=== PATIENT | female | born 1935 | race Caucasian/White ===

== ENCOUNTER 2016-12-18 19:27 | Inpatient (IN) | payer OTHER ==
[~2016-12-18] VITALS: Ht 157.5 cm; Wt 59.9 kg
[~2016-12-18 19:27] MED LIST: AMLODIPINE BESYL5 MG PO; ASPIRIN325 MG PO; HYDROCHLOROTH12.5 M3 PO; LIPITOR80 MG PO; LOSARTAN POTAS100 MG PO; NEURONTIN100 MG PO; TOPROL XL100 MG PO
[2016-12-18 20:11] LABS: INFLUENZA A VIRAL ANTIGEN NEGATIVE; INFLUENZA B VIRAL ANTIGEN NEGATIVE
[2016-12-18 20:33] LABS: HEMATOCRIT 42.4 % (36.0-46.0); MCH 30.3 PG (29.0-34.0); MCHC 35.1 G/DL (30.0-36.0); MCV 86.2 FL (83-99); MEAN PLAT.VOLUME 9.4 uM^3 (9.5-12.4); PLATELET COUNT 383 K/uL (156-360); RBC DIS.WIDTH-CV 13.9 % (11.8-14.6); RED BLOOD COUNT 4.92 M/uL (3.80-5.20); WHITE BLOOD COUNT 6.8 K/uL (4.1-10.2)
[2016-12-18 20:41] LABS: CHLORIDE 104 mEq/L (99-109); POTASSIUM 4.3 mEq/L (3.7-5.4); SODIUM 141 mEq/L (136-147)
[2016-12-18 20:42] LABS: GLUCOSE 120 mg/dL (70-99)
[2016-12-18 20:44] LABS: ANION GAP 13 MEQ/L (2-14)
[2016-12-18 20:46] LABS: GFR ESTIMATE (CALCULATED) > 59 mL/min/
[2016-12-18 20:47] LABS: UREA NITROGEN (BUN) 16 mg/dL (9-23)
[2016-12-18 20:54] LABS: TROP-I INTERPRETATION NEGATIVE; TROPONIN-I 0.01 ng/mL (0.0-0.30)
[2016-12-18 22:14] LABS: ADD MIUA? YES; BILIRUBIN NEGATIVE; BLOOD NEGATIVE; COLOR YELLOW ((YELLOW)); GLUCOSE (STRIP) NEGATIVE; KETONES 20; LEUKOCYTES SMALL; NITRITE NEGATIVE; PROTEIN (STRIP) 30; SPECIFIC GRAVITY 1.025 (1.000-1.030); UROBILINOGEN 0.2 MG/DL (0.2-1.0)
[2016-12-18 22:24] LABS: BACTERIA RARE /HPF; EPITHELIAL CELLS 2+ /HPF; HYALINE CASTS 0-5 /LPF; MUCUS 1+ /LPF; RED BLOOD CELLS 0-5 /HPF (0-5); UCUL ADDED? NO; UNCLASSIFIED CASTS 0-5 /LPF; UNCLASSIFIED CRYSTALS 1+ /HPF; WHITE BLOOD CELLS 0-5 /HPF (0-5)
[2016-12-18] MEDS ORDERED: LITE COAT ASPI325 M1 PO (23:44)
[2016-12-19] VITALS (7 sets, daily range): BP systolic 107–145; BP diastolic 56–79
[2016-12-19 09:01] LABS: ALKALINE PHOSPHATASE 73 IU/L (3-129); ANION GAP 10 MEQ/L (2-14); CHLORIDE 109 MEQ/L (99-109); GFR ESTIMATE (CALCULATED) > 59 mL/min/; GLUCOSE 115 mg/dL (70-99); SAMPLE HEMOLYSIS CHECK 0; SAMPLE ICTERIC CHECK 0; SAMPLE LIPEMIA CHECK 0; SODIUM 140 MEQ/L (136-147); TOTAL BILIRUBIN 0.6 MG/DL (0.0-1.0); UREA NITROGEN (BUN) 13 mg/dL (9-23)
[2016-12-19 09:06] LABS: HEMATOCRIT 35.4 % (36.0-46.0); MCH 29.3 PG (29.0-34.0); MCHC 33.3 G/DL (30.0-36.0); MCV 87.8 FL (83-99); MEAN PLAT.VOLUME 9.8 uM^3 (9.5-12.4); PLATELET COUNT 295 K/uL (156-360); RBC DIS.WIDTH-CV 14.2 % (11.8-14.6); RBC DIS.WIDTH-SD 45.7 % (39-53); RED BLOOD COUNT 4.03 M/uL (3.80-5.20); WHITE BLOOD COUNT 7.3 K/uL (4.1-10.2)
[2016-12-19 09:32] LABS: BASE EXCESS -1.7 mEq/L (-3 to +3); BICARBONATE 21.7 mEq/L (22-26); CARBOXY HGB 1.4 % (0-5); METHEMOGLOBIN 1.4 % (0-1.5); PCO2 32 mm Hg (35-45); PO2 76 mm Hg (80-100); pH 7.44 (7.35-7.45)
[2016-12-19 09:33] LABS: SITE LR
[2016-12-19 09:34] LABS: DEVICE NC; O2 FLOW 2 L/MIN; TOTAL RESP RATE 16 resp/min
[2016-12-19 13:25] LABS: D-DIMER ELISA 1.71 mg/L FEU (< 0.57)
[2016-12-20 00:12] VITALS: BP 122/61
[2016-12-20 04:36] VITALS: BP 120/74
[2016-12-20 07:26] VITALS: BP 108/57
[2016-12-20] MEDS ORDERED: AZITHROMYCIN500 M1 PO (07:31)
[2016-12-20] MEDS ORDERED: NICOTINE PATCH1 EAC1 TD (07:31)
[2016-12-20] MEDS ORDERED: ADVAIR HFA120 INHALA IH (07:31)
[2016-12-20] MEDS ORDERED: PREDNISONE10 M1 PO (07:31)
[2016-12-20] MEDS ORDERED: SPIRIVA RESPIMAT4 GM IH (07:31)
[2016-12-20] MEDS ORDERED: VENTOLIN HFA18 GM IH (07:40)
[2016-12-20 09:55] LABS: HEMATOCRIT 36.5 % (36.0-46.0); MCH 29.4 PG (29.0-34.0); MCHC 33.2 G/DL (30.0-36.0); MCV 88.6 FL (83-99); MEAN PLAT.VOLUME 10.2 uM^3 (9.5-12.4); PLATELET COUNT 366 K/uL (156-360); RBC DIS.WIDTH-CV 14.5 % (11.8-14.6); RBC DIS.WIDTH-SD 47.3 % (39-53); RED BLOOD COUNT 4.12 M/uL (3.80-5.20); WHITE BLOOD COUNT 19.3 K/uL (4.1-10.2)
[2016-12-20 10:35] LABS: ANION GAP 11 MEQ/L (2-14); CHLORIDE 107 MEQ/L (99-109); GFR ESTIMATE (CALCULATED) > 59 mL/min/; GLUCOSE 146 mg/dL (70-99); POTASSIUM 4.6 MEQ/L (3.7-5.4); SAMPLE HEMOLYSIS CHECK 0; SAMPLE ICTERIC CHECK 0; SAMPLE LIPEMIA CHECK 0; SODIUM 140 MEQ/L (136-147); UREA NITROGEN (BUN) 14 mg/dL (9-23)
[2016-12-20] MEDS ORDERED: INCRUSE ELLI62.5 MCG IH (10:37)
[2016-12-20] MEDS ORDERED: BREO ELLIPTA I1 EACH IH (11:04)
[2016-12-20 11:23] VITALS: BP 119/64
== END 2016-12-20 12:40 | disposition home or self-care (01) | DRG 192 ==
LOC: EME 19:27 → 5WEST 23:35 → EDOF 23:35 → 5WEST 12-19 01:02
PROVIDERS: Emergency Medicine; Hospitalist; Internal Medicine; Physician Assistant Medical
DX: J44.1 Chronic obstructive pulmonary disease with (acute) exacerbation (principal); J20.9 Acute bronchitis, unspecified; I25.10 Atherosclerotic heart disease of native coronary artery without angina pectoris; E78.4 Other hyperlipidemia; R09.02 Hypoxemia; R91.1 Solitary pulmonary nodule; E78.00 Pure hypercholesterolemia, unspecified; R06.00 Dyspnea, unspecified; I70.0 Atherosclerosis of aorta; F17.210 Nicotine dependence, cigarettes, uncomplicated; G89.29 Other chronic pain; M54.9 Dorsalgia, unspecified; Z88.5 Allergy status to narcotic agent; Z98.61 Coronary angioplasty status; Z79.82 Long term (current) use of aspirin; Z90.12 Acquired absence of left breast and nipple; Z85.41 Personal history of malignant neoplasm of cervix uteri; Z85.3 Personal history of malignant neoplasm of breast
CPT/HCPCS: 36600; 71020; 71250; 71275; 80048; 80053; 81003; 82803; 83605; 84484; 85027; 85379; 87040; 87502; 93005; 94640; 94640 76; 94799; 99202; 99281; 99285; G0378; J1644; J2930; J7030